=== PATIENT | male | born 1975 | race American Indian/Alaskan Native ===

== ENCOUNTER 2020-11-16 11:51 | Outpatient (CLI) | payer OTHER ==
--- NOTE | 2020-11-16 13:39 | XRay Report ---
Cervical spine 4 views INDICATION: Neck pain IMPRESSION: Anterior cervical fusion hardware at C5-C7 noted without evidence of loosening or failure . Signer Name: Karthik Medina MD Signed: 11/16/2020 1:34 PM Workstation Name: [email or web address]
--- NOTE | 2020-11-16 13:51 | XRay Report ---
Lumbar spine 4 views INDICATION: Low back pain IMPRESSION: Mild discogenic and facet arthropathy particularly at L5-S1 where there is mild bilateral neural foraminal narrowing. Signer Name: Karthik Medina MD Signed: 11/16/2020 1:47 PM Workstation Name: [id number]
--- NOTE | 2020-11-16 13:53 | XRay Report ---
Left hand 2 views INDICATION: Left hand pain IMPRESSION: The left hand is intact. No significant joint space abnormality is identified. Signer Name: Karthik Medina MD Signed: 11/16/2020 1:47 PM Workstation Name: [id number]
== END 2020-11-16 11:52 | disposition home or self-care (01) ==
LOC: XRAY 11:51
PROVIDERS: ATTEND Internal Medicine
DX: M47.817 Spondylosis without myelopathy or radiculopathy, lumbosacral region (principal); M51.36 Other intervertebral disc degeneration, lumbar region; M43.22 Fusion of spine, cervical region; M79.642 Pain in left hand
CPT/HCPCS: 72040; 72100

== ENCOUNTER 2021-01-26 06:58 | Emergency (ER) | payer SELFPAY ==
[2021-01-26 07:27] VITALS: BP 135/85
[2021-01-26] MEDS ORDERED: predniSONE 20 MG TAB PO ONE (08:16)
[2021-01-26] MEDS ORDERED: IPRATROPIUM 0.02% NEBU 2.5 ML IH ONE (08:16)
[2021-01-26] MEDS ORDERED: ALBUTEROL 2.5 MG/3 ML NEBU IH ONE (08:16)
--- NOTE | 2021-01-26 08:34 | Emergency Department Report ---
ED Asthma HPI - General Chief Complaint: Adult Asthma Stated Complaint: ASTHMA ATTACK Time Seen by Provider: 01/26/21 08:04 Source: patient Mode of arrival: Ambulatory Limitations: No Limitations - History of Present Illness Initial Comments: 45-year-old -[place] male presents to the emergency room states he has been out of his asthma medicine for the last 2 weeks. Patient states feels like his is about to get an asthma attack. Patient reports he usually is on a rescue inhaler and Advair 250/50. Was noted in triage the patient had mild expiratory wheeze. Patient reports he is allergic to aspirin and NSAIDs. Has a history of asthma and diabetes. MD Complaint: "asthma attack", wheezing Onset/Timin -: week(s) Asthma History: history of prior ED visit Severity: moderate Context: ran out of meds Associated Symptoms: other (Wheezing) - Related Data Current Asthma Therapy: inhaled bronchodilator, inhaled steroid Previous Rx's Medication Instructions Recorded Last Taken Type Albuterol Sulfate [Albuterol 0.63% 0.63 mg IH TID PRN #270 ml 01/26/21 Unknown Rx NEBS] Albuterol Sulfate [Proair 90 mcg IH QID PRN #1 aer.pow.ba 01/26/21 Unknown Rx Respiclick] Fluticasone/Salmeterol [Advair 1 puff IH BID #1 disk.w.dev 01/26/21 Unknown Rx Diskus 250-50 mcg] predniSONE [Deltasone] 20 mg PO QDAY #4 tab 01/26/21 Unknown Rx Allergies Allergy/AdvReac Type Severity Reaction Status Date / Time aspirin Allergy Shortness Verified 01/26/21 07:19 of Breath NSAIDS (Non-Steroidal Allergy Shortness Verified 01/26/21 07:19 Anti-Inflamma of Breath ED Review of Systems ROS: Stated complaint: ASTHMA ATTACK Other details as noted in HPI Comment: All other systems reviewed and negative ED Past Medical Hx - Past Medical History Hx Diabetes: Yes Hx Asthma: Yes - Surgical History Additional Surgical History: SPINAL DECOMPRESSION/ BROKEN JAW/ LEFT ANKLE/ NASAL - Social History Smoking Status: Never Smoker Substance Use Type: None - Medications Home Medications: Home Medications Medication Instructions Recorded Confirmed Last Taken Type Albuterol Sulfate [Albuterol 0.63% 0.63 mg IH TID PRN #270 ml 01/26/21 Unknown Rx NEBS] Albuterol Sulfate [Proair 90 mcg IH QID PRN #1 aer.pow.ba 01/26/21 Unknown Rx Respiclick] Fluticasone/Salmeterol [Advair 1 puff IH BID #1 disk.w.dev 01/26/21 Unknown Rx Diskus 250-50 mcg] predniSONE [Deltasone] 20 mg PO QDAY #4 tab 01/26/21 Unknown Rx ED Physical Exam - General Limitations: No Limitations General appearance: alert, in no apparent distress - Head Head exam: Present: atraumatic, normocephalic - Eye Eye exam: Present: normal appearance - ENT ENT exam: Present: mucous membranes moist, normal external ear exam - Neck Neck exam: Present: normal inspection, full ROM - Respiratory Respiratory exam: Present: wheezes, rhonchi, prolonged expiratory - Cardiovascular Cardiovascular Exam: Present: regular rate - Extremities Exam Extremities exam: Present: normal inspection - Back Exam Back exam: Present: normal inspection - Neurological Exam Neurological exam: Present: alert, oriented X3, normal gait - Psychiatric Psychiatric exam: Present: normal affect, normal mood - Skin Skin exam: Present: warm, dry, intact, normal color. Absent: rash ED Course Vital Signs 01/26/21 07:26 Temperature 98.1 F Pulse Rate 87 Respiratory 26 H Rate Blood Pressure 135/85 O2 Sat by Pulse 98 Oximetry - Reevaluation(s) Reevaluation #1: 01/26/21 09:38 Patient reports that he is feeling much better. Lung exam is clear at this [facility] ED Medical Decision Making - Medical Decision Making 45-year-old -[place] male presents to the emergency room states he has been out of his asthma medicine for the last 2 weeks. Patient states feels like his is about to get an asthma attack. Patient reports he usually is on a rescue inhaler and Advair 250/50. Was noted in triage the patient had mild expiratory wheeze. Patient reports he is allergic to aspirin and NSAIDs. Has a history of asthma and diabetes. Initial albuterol 5 mg inhalation, Atrovent 0.5 mg inhalation and prednisone 60 mg p.o. Patient be discharged home with a refill on his nebulizer solution, proair, Advair. Patient was given prednisone for 4 days. I discussed with patient that he will need to adjust his insulin while taking prednisone. Patient reports that he is quite aware of how to adjust his insulin and he appreciates the service he received here. Patient was referred to a primary care provider. Critical care attestation.: If time is entered above; I have spent that time in minutes in the direct care of this critically ill patient, excluding procedure time. ED Disposition Clinical Impression: Asthma, Wheezing Disposition: DC-01 TO HOME OR SELFCARE Is pt being admited?: No Does the pt Need Aspirin: No Condition: Stable Instructions: Asthma (ED), Asthma, Adult, Gyow-rp-Oion Additional Instructions: Please use inhaler and nebulizer machine as prescribed. Follow-up with a primary care provider I have listed 1 below for your convenience. Prescriptions: Fluticasone/Salmeterol [Advair Diskus 250-50 mcg] 1 puff IH BID #1 disk.w.dev Albuterol Sulfate [Albuterol 0.63% NEBS] 0.63 mg IH TID PRN #270 ml PRN Reason: Wheezing predniSONE [Deltasone] 20 mg PO QDAY #4 tab Albuterol Sulfate [Proair Respiclick] 90 mcg IH QID PRN #1 aer.pow.ba PRN Reason: Wheezing Referrals: BYRON GALINDO MD [Staff Physician] - 3-5 Days Forms: Work/School Release Form(ED)
== END 2021-01-26 09:56 | disposition home or self-care (01) ==
LOC: EDBD → ED 06:58
DX: J45.909 Unspecified asthma, uncomplicated (principal); E11.9 Type 2 diabetes mellitus without complications; Z79.899 Other long term (current) drug therapy; Z98.890 Other specified postprocedural states; Z88.6 Allergy status to analgesic agent; Z88.8 Allergy status to other drugs, medicaments and biological substances
CPT/HCPCS: 94640; 99282; J7512; 94644

== ENCOUNTER 2021-02-18 22:56 | Emergency (ER) | payer SELFPAY ==
[2021-02-19 01:43] VITALS: BP 160/93
== END 2021-02-18 23:57 ==
LOC: ED 22:56
DX: M79.602 Pain in left arm (principal); Z53.21 Procedure and treatment not carried out due to patient leaving prior to being seen by health care provider

== ENCOUNTER 2021-12-17 23:59 | Emergency (ER) | payer SELFPAY ==
[2021-12-18 00:49] LABS: Bilirubin,Urine NEG (Negative); Blood,Urine SM (Negative); Color,Urine Yellow (Yellow); Mucus,Urine FEW /HPF; Urobilinogen,Urine < 2.0 mg/dL (<2.0)
[2021-12-18 00:55] LABS: Amphetamine Screen,Urine PRESUMPTIVE NEGATIVE; Benzodiazepines Screen,Urine PRESUMPTIVE NEGATIVE; Cannabinoid Screen,Urine PRESUMPTIVE NEGATIVE; Cocaine Screen,Urine PRESUMPTIVE NEGATIVE; Methadone Screen,Urine PRESUMPTIVE NEGATIVE; Opiate Screen,Urine PRESUMPTIVE NEGATIVE
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
[2021-12-18 01:19] LABS: Basophils % (Auto) 0.6 % (0.0-1.8); Eosinophils # (Auto) 0.2 K/mm3 (0.0-0.4); Eosinophils % (Auto) 2.6 % (0.0-4.3); Hematocrit 44.3 % (35.5-45.6); Hemoglobin 15.3 gm/dl (11.8-15.2); Lymphocytes # (Auto) 1.5 K/mm3 (1.2-5.4); Lymphocytes % (Auto) 18.3 % (13.4-35.0); Mean Corpuscular HGB Conc 35 % (32-34); Mean Corpuscular Volume 102 fl (84-94); Monocytes # (Auto) 0.4 K/mm3 (0.0-0.8); Monocytes % (Auto) 4.5 % (0.0-7.3); Platelet Count 206 K/mm3 (140-440); Red Blood Count 4.32 M/mm3 (3.65-5.03); Red Cell Distribution Width 13.5 % (13.2-15.2)
[2021-12-18 01:40] LABS: BUN/Creatinine Ratio 13; Blood Urea Nitrogen 12 mg/dL (9-20); Calcium 9.6 mg/dL (8.4-10.2); Hemolysis Index 10
[2021-12-18 10:10] VITALS: BP 132/77
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
[2021-12-18] MEDS ORDERED: ONDANSETRON 4 MG ODT TAB PO ONE (11:35)
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
== END 2021-12-18 13:56 | disposition home or self-care (01) ==
LOC: EEVIPCON 23:59 → ED 23:59
DX: F10.10 Alcohol abuse, uncomplicated (principal); F32.A Depression, unspecified; E11.9 Type 2 diabetes mellitus without complications; J45.909 Unspecified asthma, uncomplicated; Z91.09 Other allergy status, other than to drugs and biological substances; Z79.899 Other long term (current) drug therapy
CPT/HCPCS: 36415; 80048; 80307; 80320; 81001; 85025; 99284; G0480